=== PATIENT | male | born 1980 | race Caucasian/White ===

== ENCOUNTER 2017-01-31 08:41 | Emergency (ER) | payer OTHER ==
[~2017-01-31] VITALS: Ht 172.7 cm; Wt 68.2 kg
[2017-01-31 08:45] VITALS: BP 117/81; PULSE 71; RESP 14; O2SAT 96
--- NOTE | 2017-01-31 09:51 | ED.REPORT ---
HPI-General Illness Date of Service January 31, 2017 ED Provider: Salomon Herrera DO The patient is a 36 yo male with history of seizure disorder who presents to the ED for 1-week history of right rib pain. He reports to be fixing a car and might lie on a tool a week ago. No other significant injury. The pain did not bother him then, but it seems to get worse in the last couple days. He admits to sharp, persistent pain on the right lateral side, around Rib 6-8. The pain does not radiate anywhere. Patient denies CP, SOB, abdominal pain, nausea, vomiting, bowel/urinary dysfunction, fever, or chills. The rib pain gets worse with deep breathing, cough, lifting, and twisting movements. No alleviating factor. He has not taken any OTC medication. This is the first time he has pain like this. His friend was concerned of a fractured rib that can puncture his lung and recommended him to go to the ER. Patient reports well controlled seizure disorder on Lamotrigine and is seeing Dr. Montiel for this. No seizure episode for over a year. Nursing Notes Stated Complaint: POSS RT SIDE CRACKED RIBS Chief Complaint: Chest Pain-Non Cardiac Nature Nursing Notes Reviewed: Yes Allergies: Coded Allergies: No Known Allergies (Verified Allergy, Unknown, 03/30/14) General Time Seen by MD: 09:05 Chief Complaint Other (right rib pain) Hx Obtained From: Patient Arrived By: Walk-in Sudden in Onset?: Yes Onset Occurred: 1 week ago Symptom Duration: Since onset Context: Occurred at: Workplace Location: : Chest (right lateral rib) Quality: Sharp Radiation: : Does not radiate Severity: Current: No pain currently Severity: Maximum: Pain level 8 out of 10 Associated with: Reports: Difficulty breathing, Denies: Abdominal pain, Chest pain, Dizziness, Fever, Headache, Inability to bear weight, Loss of consciousness, Nausea, Neck pain, Numb extremities, Shortness of breath, Vision change, Vomiting, Weak extremity, Weakness Pertinent Negative: Pt denies other symptoms Exacerbated by: Moving affected area Pertinent Negative: Relieved by nothing Recent Healthcare: No recent doctor visit Similar Sx Previous: No Past Medical History Past Medical History Reports: Seizure disorder, Thyroid disease Past Surgical History None Family History Father in his 50s due to possible pancreatitis Reports: Hypertension (maternal grandfather) Smoking History Heavy Tobacco Smoker (more than a pack per day for 20 years) Social History Alcohol Use: 1-3 per day Drug Use: THC Other Social History: Poor social support Occupation In between jobs currently. 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 Ambulatory Status Independent Review of Systems Full Review of Systems Constitutional: Denies: Chills, Fatigue, Fever, Weakness - generalized Respiratory: Reports: Pleuritic pain, Denies: Dyspnea on exertion, Hemoptysis, Non-productive cough, Shortness of breath, Wheezing Cardiovascular: Denies: Chest pain, Dyspnea on exertion, Edema, Orthopnea, Palpitations, Syncope GI: Denies: Abdominal pain, Anorexia, Constipation, Diarrhea, Dysphagia, Nausea , Vomiting Male: Denies Dysuria, Denies Incontinence, Denies Urinary frequency, Denies Urinary urgency Musculoskeletal: Reports: Thoracic pain, Denies: Back pain, Joint swelling Hematologic: Denies Bleeding, Denies Bruising, Denies Petechiae Skin: Denies Bruising, Denies Diaphoresis, Denies Itching, Denies Rash, Denies Swelling Neurologic: Denies: Abnormal movement, Confusion, Dizziness, Focal weakness, Headache, Lightheaded, Numbness, Shaking Psychiatric: Denies: Agitation, Anxiety, Change mental status Complete sys rev & neg: except as marked. Physical Exam Vital Signs Vital Signs Date Time Temp Pulse Resp B/P Pulse Ox O2 Delivery O2 Flow Rate FiO2 01/31/17 08:45 35.9 71 14 117/81 96 Room Air Initial VS: Reviewed General/Constitutional: Well-developed, Well-nourished Head / Eyes: Atraumatic, Normocephalic, PERRL Respiratory: Breath sounds normal, Clear to auscultation, No respiratory distress Cardiovascular: Regular rate & rhythm, Heart sounds normal, Intact distal pulses Abdomen / GI: Soft, Non-tender, No guarding, No rebound, No distention Back: No CVA tenderness Extremities: Vascular intact, Neuro intact, No swelling, No tenderness Skin: Warm, Dry, No cyanosis Neurologic: Alert, Oriented, Nonfocal Psychiatric: Mood/affect normal, Behavior normal, Normal thought content General/Constitutional: Awake, Alert, No acute distress, Well appearing, Well developed, Cooperative, Not toxic appearing Head / Eyes: Atraumatic, Normocephalic Mouth: Positive: Mucous membranes dry Dental / Gums: Positive: Dentition poor Neck: Atraumatic, Supple, Full range of motion, No adenopathy, No swelling, Non -tender Respiratory / Chest: Atraumatic, Breath sounds NL, Breath sounds = bilat, No respiratory distress, No rales, No rhonchi, No wheezing, No retractions Chest Wall / Ribs: Positive: Chest tender lateral R, Rib tender nondeformed R Tenderness to palpation around Rib 7 on the right, lateral side with mild swelling. Mildly limited range of motion due to pain. No ecchymosis or erythema noted. Cardiovascular: Heart rate NL, Regular rhythm, Heart sounds NL, No gallop, No murmurs, No rubs Abdomen: Atraumatic, Soft, Non-tender, McBurney's non-tender, No guarding, No rebound, BS normoactive, No distention Back: Atraumatic, Full range of motion, Non-tender, No midline vertebral tend, No paraspinal tenderness, No muscle spasm, No CVA tenderness Neurologic: Oriented X3, Speech NL, No motor deficits, No sensory deficits, Reflexes equal bilat, Memory NL, Gait NL Psychiatric: Affect NL, Mood NL, Not suicidal, Not homicidal Re-Eval/Medical Decision Med Decision/Clinical Course This is a 36 yo male with history of seizure disorder well controlled on Lamotrigine who presents to the ER for 1-week history of right sided rib pain that progressively worsens in the last 2 days. Patient denies any injury, but remembers the pain started after he fixed a car and might lie on a tool. He admits to sharp rib pain with taking deep breath and cough, which he has chronically due to smoking. Patient denies any similar symptoms in the past and history of blood clots. PERC score and Wells criteria are both 0, and thus, no indication for PE workup. On exam, patient's rib pain is localized on the right, lateral side of Rib 7. No significant erythema or warm. No deformity noted. Cardiovascular exam was normal with no complaint of chest pain. His abdominal exam is benign. It is unlikely that his rib pain is abdominal origin. Based on his history and exam, it is likely that the patient had a rib contusion or costochondritis. XR will not change the management and this was discussed with the patient. He agreed with our plan for conservative management and follow up with his PCP if the pain worsens. Patient was advised to start with OTC analgesics like Ibuprofen, Aleve, or Tylenol. Counseled Regarding: Diagnosis, Need for follow-up, When/why to return to ED Discharge & Departure Shift Change Sign-Out Patient Care Transferred: No Discussed Complaint(s): Yes Primary Impression: Rib pain on right side Disposition: Home Discharge Condition All VS Reviewed: Yes Condition: Stable Patient Instructions: Costochondritis (ED), Rib Contusion (ED) Additional Instructions: It is likely that your rib pain is due to a bruised rib or just general inflammation of the muscle around the ribs. Based on your history and our exam, it is unlikely that you puncture your lung or have a blood clot. Your abdominal exam is normal and it is unlikely to be a gallstones or appendicitis. We discussed about the indications for a XR, which we do not think will be helpful or change our management plan. You agreed not to pursue further imaging and will follow up with your PCP if your pain gets worse. We recommend that you take some OTC medications like Ibuprofen, Aleve, or Tylenol as needed for the pain. You can also apply ice to the painful rib. Try to do gentle stretches of your back as tolerated. Do no over exert yourself and take it easy for the next couple weeks. Avoid heavy lifting and repetitive movements. Follow up with your PCP (Dr. Kennedy) as scheduled. Please talk to your PCP about smoking cessation. As discussed, smoking will increase inflammation and impair healing. Return to the ER if you develop chest pain, shortness of breath, or headache. Referrals: Benjie Kennedy MD (PCP) Attending Statement The patient was seen and examined together with Dr. Godfrey on 01/31/17 and I agree with the history, exam and plan as outlined in the note above. copies to: Benjie Kennedy MD, Ngochanh H DO January 31, 2017 09:51 Salomon Herrera DO January 31, 2017 12:42
== END 2017-01-31 10:02 | disposition home or self-care (01) ==
LOC: SED 08:41
DX: R07.81 Pleurodynia (principal); E07.9 Disorder of thyroid, unspecified; F17.200 Nicotine dependence, unspecified, uncomplicated

== ENCOUNTER 2017-03-01 17:19 | Emergency (ER) | payer OTHER ==
[~2017-03-01] VITALS: Ht 172.7 cm; Wt 65.9 kg
[2017-03-01 17:23] VITALS: BP 145/91; RESP 17; O2SAT 97
--- NOTE | 2017-03-01 18:06 | ED.REPORT ---
HPI-Dental/Mouth Prob Date of Service Mar 01, 2017 ED Provider: Angel Luis Singleton History of Present Illness: 36yo male with R sided upper and lower dental pain since eating lunch. Denies trauma. Pain is sharp, non-radiating. Nursing Notes Stated Complaint: DENTAL PAIN Chief Complaint: ENT & Mouth Nursing Notes Reviewed: Yes Allergies: Coded Allergies: No Known Allergies (Verified Allergy, Unknown, 03/30/14) General Time Seen by MD: 17:37 Chief Complaint Tooth pain Hx Obtained From: Patient Arrived By: Walk-in Onset Occurred: 1 - 4 hours ago Symptom Duration: Since onset Location: : Tooth lower R molar: Tooth upper R molar Quality: Same as prior Radiation: : Does not radiate Severity: Current: Severe Severity: Maximum: Severe Associated with: Denies: Bleeding, Can't fully open mouth, Chills, Drooling, Earache, Fever, Hoarse voice Pertinent Negative: Pt denies other symptoms Recent Healthcare: No recent doctor visit Similar Sx Previous: Yes Past Medical History Past Medical History Reports: Mental illness (PTSD) Reports: Seizure disorder, Thyroid disease Family History Reports: Hypertension Smoking History Unknown if Ever Smoker Social History Drug Use: Denies drug use Other Social History: Smokeless tobacco Ambulatory Status Independent Review of Systems Basic Review of Systems Cardiovascular: No chest pain Constitutional: Denies: Chills, Fever Ears / Nose / Throat: Reports: Toothache Respiratory: Denies: Shortness of breath GI: Denies: Abdominal pain Complete sys rev & neg: except as marked. Physical Exam Initial Vital Signs Vital Signs (First) Date Time Temp Pulse Resp B/P Pulse Ox O2 Delivery O2 Flow Rate FiO2 03/01/17 17:23 36.8 65 17 145/91 97 Room Air Initial VS: Reviewed ENT: Airway patent, Mucous membranes moist, No trismus, Tympanic membs NL Dental / Gums: Positive: Decay extensive, Dentition poor, Negative: Dental abscess, Dental impaction, Gum ulcers present, Tooth fracture Neck: Supple, Full range of motion, No adenopathy Respiratory / Chest: Breath sounds NL, Breath sounds = bilat, No respiratory distress Cardiovascular: Heart rate NL, Regular rhythm, Heart sounds NL Abdomen: Soft Re-Eval/Medical Decision Med Decision/Clinical Course Straightforward odentalgia with marked caries, will treat prophylactically with Pen VK and short course of [place]. Counseled Regarding: Diagnosis, Need for follow-up, When/why to return to ED Discharge & Departure Primary Impression: Toothache Additional Impression: Caries Disposition: Home Patient Instructions: Dental Abscess (GEN) Additional Instructions: Soft diet, local heat. Take meds as prescribed. Follow up with dentist soon. return to ER if anything worsens. [facility] Provider for [facility]: Silvino Rodriguez MD, Christopher R PAC Mar 01, 2017 18:06
[2017-03-01] MEDS ORDERED: PENI500T PO (18:08)
[2017-03-01] MEDS ORDERED: HYDR-4003 PO (18:08)
[2017-03-01 18:17] VITALS: BP 145/91; PULSE 65; RESP 17; O2SAT 97
== END 2017-03-01 18:18 | disposition home or self-care (01) ==
LOC: SED 17:19
DX: K08.89 Other specified disorders of teeth and supporting structures (principal); K02.9 Dental caries, unspecified